=== PATIENT | female | born 2000 | race Caucasian/White ===

== ENCOUNTER 2024-10-08 03:32 | Inpatient (IN) | payer BC, SELFPAY ==
[2024-10-08] MEDS ORDERED: Acetaminophen 500 MG TAB PO PRN (03:45)
[2024-10-08] MEDS ORDERED: Ondansetron PF 4 MG/2 ML Vial IVP PRN (03:45)
[2024-10-08] MEDS ORDERED: Lidocaine 1% (PF) 30 ML VIAL SC PRN (03:45)
[2024-10-08] MEDS ORDERED: hydrALAZINE 20 MG/ML VIAL SLOW IVP PRN ×2 (03:45→19:05)
[2024-10-08 03:53] VITALS: BMI 24.5
[2024-10-08 04:26] LABS: Hematocrit 32.7 % (34.9-44.5); Hemoglobin 11.1 g/dL (12.0-15.5); Mean Corpuscular Hemoglobin 30.4 pg (27.0-33.0); Mean Corpuscular Volume 89.6 fL (81.6-98.3); Platelet Count 240 10x3/uL (150-450); Red Blood Cell (RBC) Count 3.65 10x6/uL (3.90-5.03); White Blood Cell (WBC) Count 11.12 10x3/uL (3.5-10.5)
[2024-10-08 04:58] LABS: Hep B Surf Ag - L&D Non-Reactive S/CO (NonReactive)
[2024-10-08 05:00] LABS: Syphilis Antibody Index 0.04 S/CO (<1.00 Non-Reactive)
[2024-10-08] MEDS ORDERED: Acetaminophen 325 MG TAB PO PRN (05:05)
[2024-10-08] MEDS: fentaNYL/Ropivacaine Epidural 100 ML ONE (05:05)
[2024-10-08] MEDS ORDERED: diphenhydrAMINE 50 MG/ML VIAL IVP PRN (05:05)
[2024-10-08] MEDS ORDERED: Communication Order-Pharmacy FS SCH (05:15)
[2024-10-08] MEDS: Oxytocin 30 units/NS 500 ML 500 ML IV SCH (07:58)
[2024-10-08] MEDS ORDERED: Bupivacaine 0.25% HCL 30 ML VIAL ONE (08:00)
[2024-10-08] MEDS: Ondansetron PF 4 MG/2 ML Vial IVP PRN (13:06)
[2024-10-08] MEDS: fentaNYL 2 mcg/Ropivacaine 0.2% Epidural 100 ML CADD EPIDURAL SCH (15:24)
[2024-10-08] MEDS: Ibuprofen 800 MG TAB PO PRN (18:07)
[2024-10-08] MEDS ORDERED: Boostrix 0.5 ML (Tdap) VIAL (>/=7 yrs of age) IM ONE (19:05)
[2024-10-08] MEDS ORDERED: Bisacodyl 10 MG SUPP PR PRN (19:05)
[2024-10-08] MEDS ORDERED: Benzocaine-Menthol 82.5 ML CAN TOP PRN (19:05)
[2024-10-08] MEDS ORDERED: Lanolin Ointment 7 GM TUBE TOP PRN (19:05)
[2024-10-08] MEDS ORDERED: Milk Of Magnesia 30 ML UDCUP PO PRN (19:05)
[2024-10-08] MEDS: Tranexamic Acid 1,000 MG/10 ML VIAL ONE (21:54)
[2024-10-08 22:23] LABS: #Basophils Less than 0.03 10x3/uL (0.0-0.2); #Eosinophils Less than 0.03 10x3/uL (0.0-0.5); #Monocytes 1.05 10x3/uL (0.0-1.1); #Neutrophils 16.45 10x3/uL (1.5-8.4); %Basophils 0.1 % (0.0-2.0); %Eosinophils 0.0 % (0.0-6.0); %Lymphocytes 7.7 % (18.0-47.0); %Monocytes 5.5 % (0.0-10.0); %Neutrophils 85.8 % (40.0-75.0); Hematocrit 24.7 % (34.9-44.5); Hemoglobin 8.3 g/dL (12.0-15.5); Mean Corpuscular Hemoglobin 30.9 pg (27.0-33.0); Mean Corpuscular Volume 91.8 fL (81.6-98.3); Platelet Count 212 10x3/uL (150-450); Red Blood Cell (RBC) Count 2.69 10x6/uL (3.90-5.03); White Blood Cell (WBC) Count 19.16 10x3/uL (3.5-10.5)
[2024-10-08] MEDS ORDERED: PROPOFOL 20 ML ONE (22:34)
[2024-10-08] MEDS ORDERED: SUCCINYLCHOLINE/SOD CL,ISO/PF 200 MG/10 ML SYRINGE FS ONE (22:34)
[2024-10-08] MEDS ORDERED: Ondansetron PF 4 MG/2 ML Vial ONE (22:34)
[2024-10-08 22:35] LABS: INR-International Normal Ratio 1.0; PTT 28.5 sec (22.0-33.0); Prothrombin Time 10.7 sec (9.5-12.1)
[2024-10-08 23:42] LABS: Fibrinogen 392.0 mg/dL (220-504)
[2024-10-09] MEDS: HYDROcodone/Acetaminophen 5/325 mg Tablet PO PRN ×2 (02:18→14:53)
[2024-10-09] MEDS: Ibuprofen 800 MG TAB PO SCH (05:09)
[2024-10-09 05:17] LABS: Hematocrit 26.7 % (34.9-44.5); Hemoglobin 9.0 g/dL (12.0-15.5); Mean Corpuscular Hemoglobin 30.0 pg (27.0-33.0); Mean Corpuscular Volume 89.0 fL (81.6-98.3); Platelet Count 190 10x3/uL (150-450); Red Blood Cell (RBC) Count 3.00 10x6/uL (3.90-5.03); White Blood Cell (WBC) Count 18.65 10x3/uL (3.5-10.5)
[2024-10-09] MEDS: Oxytocin 30 units/NS 500 ML 500 ML ONE (07:10)
[2024-10-09] MEDS: Ferrous Sulfate 325 MG TAB PO SCH (08:35)
[2024-10-10 05:58] LABS: Hematocrit 24.7 % (34.9-44.5); Hemoglobin 8.2 g/dL (12.0-15.5); Mean Corpuscular Hemoglobin 30.4 pg (27.0-33.0); Mean Corpuscular Volume 91.5 fL (81.6-98.3); Platelet Count 204 10x3/uL (150-450); Red Blood Cell (RBC) Count 2.70 10x6/uL (3.90-5.03); White Blood Cell (WBC) Count 13.88 10x3/uL (3.5-10.5)
[2024-10-11] MEDS: Cephalexin 500 MG CAP PO SCH ×2 (10:46→10:54)
[2024-10-12 08:45] VITALS: BP 119/67; TEMP 98.5
== END 2024-10-12 17:15 | disposition home or self-care (01) | DRG 768 ==
LOC: CSHLD/OP 03:32 → CSHLD 03:51 → CSHPP 10-09 00:30
PROVIDERS: ADMIT Obstetrics & Gynecology; ATTEND Obstetrics & Gynecology
PROC: 0U9GXZZ Drainage of Vagina, External Approach (ICD-10-PCS; principal; 2024-10-09)
PROC: 0UQGXZZ Repair Vagina, External Approach (ICD-10-PCS; principal; 2024-10-09)
PROC: 30233N1 Transfusion of Nonautologous Red Blood Cells into Peripheral Vein, Percutaneous Approach (ICD-10-PCS; principal; 2024-10-09)
PROC: 04LY0ZZ Occlusion of Lower Artery, Open Approach (ICD-10-PCS; principal; 2024-10-09)
PROC: 10E0XZZ Delivery of Products of Conception, External Approach (ICD-10-PCS; principal; 2024-10-09)
DX: O48.0 Post-term pregnancy (principal); Z37.0 Single live birth; O71.4 Obstetric high vaginal laceration alone; O71.7 Obstetric hematoma of pelvis; Z3A.40 40 weeks gestation of pregnancy; O62.2 Other uterine inertia
CPT/HCPCS: 36415; 36430; 51702; 85027; 85384; 85610; 85730; 86780; 86850; 86900; 86901; 87340; 99285; J0665; J1100; J2405; J2590; J2704; J3010; J7120; P9016